=== PATIENT | male | born 1965 | race Caucasian/White ===

== ENCOUNTER 2017-07-12 07:38 | Day surgery (SDC) | payer OTHER ==
[2017-07-12] MEDS ORDERED: LR 1000 ML IV 1,000 ML IV ONE (07:58)
[2017-07-12] MEDS ORDERED: DIPRIVAN VIAL 20 ML ONE (08:28)
[2017-07-12] MEDS ORDERED: XYLOCAINE-MPF 1% ONE (08:29)
[2017-07-12] MEDS ORDERED: DIPRIVAN VIAL 10 ML ONE (08:52)
[2017-07-12 09:33] VITALS: BP 138/61
--- NOTE | 2017-07-12 11:13 | OR.GENERIC ---
Post-Op Note Generic - Post-Op Note Operative Report: Procedure Note July 12, 2017 Pre-Operative Diagnosis: Screening colonoscopy. Post-Operative Diagnosis: 1. Sigmoid polys x 2. 2. Rectal polyp. Procedure: Colonoscopy to cecum with polypectomy (snare with cautery and cold biopsy forceps). Surgeon: Erick Betancourt MD [employer] Helper: Ruby Kidd CRNA Specimens: 1. Sigmoid polyp at 25 cm. 2. Sigmoid polyp at 20 cm. 3. Rectal polyp. Estimated blood loss: Minimal. Complications: None. Summary: The patient is a 52 year old male who presented for a screening colonoscopy. The risk and benefits of the procedure including difficulty with anesthesia, bleeding, infection, as well as perforation were discussed with the patient. The patient understood these risks and requested the procedure. On July 12, 2017, the patient was brought to the endoscopy suite. A time out was performed verifying the patient and procedure. The patient was placed in a left lateral decubitus position. After satisfactory induction of monitored anesthesia care, a rectal exam was performed. This was normal. Next, an endoscopy was advanced through the anus and directed to the cecum without difficulty. The scope was then withdrawn viewing all mucosal surfaces. The patients prep was adequate. The cecum, ascending, transverse, as well as descending portions of the colon were normal. Specifically, there were no masses, polyps, or diverticula. The scope was withdrawn through the sigmoid portion of the colon. No masses or diverticula were seen. However, two polyps were noted. The first polyp was removed using a snare with cautery. The second polyp was removed using cold biopsy forceps. The scope was withdrawn into the rectum. A small polyp was removed using cold biopsy forceps. The scope was then retroflexed. No other pathology was seen. The scope was straightened and insufflation evacuated. The scope was withdrawn and the procedure terminated. The patient was taken to the recovery room in stable condition. There were no complications.
== END 2017-07-12 09:33 | disposition home or self-care (01) ==
LOC: SURG1 07:38
PROVIDERS: ATTEND Student in an Organized Health Care Education/Training Program
PROC: 0DBN8ZX Excision of Sigmoid Colon, Via Natural or Artificial Opening Endoscopic, Diagnostic (ICD-10-PCS; principal; 2017-07-12 08:30)
PROC: 0DJD8ZZ Inspection of Lower Intestinal Tract, Via Natural or Artificial Opening Endoscopic (ICD-10-PCS; principal; 2017-07-12 08:30)
PROC: 0DBP8ZX Excision of Rectum, Via Natural or Artificial Opening Endoscopic, Diagnostic (ICD-10-PCS; principal; 2017-07-12 08:30)
DX: Z12.11 Encounter for screening for malignant neoplasm of colon (principal); K63.5 Polyp of colon; K62.1 Rectal polyp
CPT/HCPCS: A4217; J3490; J7120